=== PATIENT | female | born 1955 | race Caucasian/White ===

== ENCOUNTER → 2018-09-20 | Outpatient (CLI) | payer OTHER ==
[~2018-09-20] MED LIST: CATHETER FLUSH 10 ML SYR IV PRN; HOLD METFORMIN - RECEIVED CONTRAST 20 ML VIAL IV SCH; IOHEXOL 350 MG/ML 100 ML (OMNIPAQUE 350) VIAL IV ONE; NS 100 ML (IVPB) BAG IV ONE
--- NOTE | 2018-09-20 10:56 | Diagnostic Imaging Report ---
PROCEDURE: CT abdomen and pelvis with contrast. TECHNIQUE: Multiple contiguous axial images were obtained through the abdomen and pelvis after administration of intravenous contrast. Auto Exposure Controls were utilized during the CT exam to meet ALARA standards for radiation dose reduction. INDICATION: Lower back pain. No comparison available. FINDINGS: Limited views of lower thorax are unremarkable. Liver is normal. No focal liver lesions are seen. Gallbladder is normal. No biliary ductal dilation. Portal vein is patent. Pancreas, spleen and right adrenal gland are normal. There is an 18 mm indeterminate left adrenal nodule. Kidneys enhance symmetrically. No focal renal lesions are seen. There is a cyst in the upper pole right kidney. No hydronephrosis. Urinary bladder is normal. No pelvic mass seen. There is no bowel obstruction or inflammation. No free fluid or air. No abdominal or pelvic lymphadenopathy. The abdominal aorta is atherosclerotic without aneurysm. There are no suspicious osseous lesions. There is mild anterolisthesis of L4 and L5 related to facet arthropathy. There is a mild L2 compression fracture, age indeterminate. IMPRESSION: 1. No acute abnormality in the abdomen or pelvis. 2. Indeterminate 18 mm left adrenal nodule. In the absence of a history of malignancy, this is almost certainly benign. Consider 12 month followup adrenal protocol CT. 3. Mild anterolisthesis of L4 and L5 related to facet arthropathy. 4. Mild L2 compression fracture, age indeterminate. Dictated by: Dictated on workstation # [id number]
== END ==
LOC: RAD FS 08:50
PROVIDERS: ATTEND Family Medicine
DX: N39.0 Urinary tract infection, site not specified (principal); M43.16 Spondylolisthesis, lumbar region; M84.48XA Pathological fracture, other site, initial encounter for fracture; M12.88 Other specific arthropathies, not elsewhere classified, other specified site
CPT/HCPCS: 74177

== ENCOUNTER → 2018-10-29 | Outpatient (CLI) | payer OTHER ==
--- NOTE | 2018-10-29 16:17 | Diagnostic Imaging Report ---
INDICATION: 63-year-old asymptomatic postmenopausal female. COMPARISON: None available. FINDINGS: AP Spine L1-L4: [BMD (g/cm2): 1.066] [T-Score: -1.1] [Z-Score: -0.5] [BMD Previous: N/A] [BMD % Change: N/A] LT Hip Neck: [BMD (g/cm2): 0.818] [T-Score: -1.6] [Z-Score: -0.7] LT Hip Total: [BMD (g/cm2):0.963] [T-Score:-0.4] [Z-Score: 0.1] [BMD Previous: N/A] [BMD % Change: N/A] RT Hip Neck: [BMD (g/cm2):0.836] [T-Score:1.5] [Z-Score:-0.6] RT Hip Total: [BMD (g/cm2):0.927] [T-score:-0.6] [Z-Score:-0.2] [BMD Previous:N/A] [BMD % Change:N/A] *Indicates significant change from prior examination based on 95% confidence level. World Health Organization criteria for BMD interpretation classify patients as Normal (T-score at or above -1.0), Osteopenic (T-score between -1.0 and -2.5) or Osteoporotic (T-score at or below -2.5). LIMITATIONS AND MODIFICATION: None. IMPRESSION: 1. Osteopenia (Low bone mass). 2. Baseline examination. 3. See below National Osteoporosis Foundation guidelines on when to potentially initiate pharmacologic therapy. Based on the National Osteoporosis Foundation Guidelines, pharmacologic treatment should be initiated in any of the following, unless clinical conditions suggest otherwise: * Any patient with prior fragility fracture of the hip or vertebrae. A spine fracture indicates 5X risk for subsequent spine fracture and 2X risk for subsequent hip fracture. * Osteoporosis (T-score <-2.5). * Postmenopausal women and men age 50 and older with low bone mass/osteopenia (T-score between -1.0 and -2.5) by DXA and 10-year major osteoporotic fracture greater than 20% or a 10-year probability of hip fracture greater than 3%. These fracture risks are supplied above in the FRAX score, if applicable. * Clinician judgement and/or patient preferences may indicate treatment for people with 10-year fracture probabilities above or below these levels. Dictated by: Dictated on workstation # [id number]
== END ==
LOC: RAD 10:47
PROVIDERS: ATTEND Family Medicine
DX: M80.08XA Age-related osteoporosis with current pathological fracture, vertebra(e), initial encounter for fracture (principal); M85.80 Other specified disorders of bone density and structure, unspecified site
CPT/HCPCS: 77080

== ENCOUNTER → 2019-06-25 | Outpatient (CLI) | payer OTHER ==
--- NOTE | 2019-06-25 09:36 | Diagnostic Imaging Report ---
PROCEDURE: MR imaging cervical spine without contrast. TECHNIQUE: Multiplanar, multisequence MR imaging of the cervical spine was performed without contrast. DATE: June 25, 2019. COMPARISON: None. INDICATION: 64-year-old female, neck pain. No known injury. FINDINGS: The alignment of the cervical spine is grossly unremarkable. There is no evidence of a diffuse marrow infiltrating or replacing process. There are Modic endplate degenerative changes most notably adjacent to the C4-C5 and C6-C7 disc spaces. There is moderate to severe disc height loss at C4-C5 and mild disc height loss at C5-C6 and C6-C7. There is mild arthritis at the C1-C2 articulation. There is minimal joint fluid at the C1-C2 articulation. There is no focal concerning bone lesion. The imaged portions of the spinal cord are unremarkable in signal. C2-C3: There is no disc bulge. The uncovertebral and facet joints are unremarkable. There is no foraminal narrowing. There is no spinal canal stenosis. C3-C4: There is no disc bulge. The uncovertebral and facet joints are unremarkable. There is no foraminal narrowing. There is no spinal canal stenosis. C4-C5: There is a posterior disc osteophyte complex. The uncovertebral and facet joints are unremarkable. There is moderate left foraminal narrowing. There is no spinal canal stenosis. C5-C6: There is a posterior disc osteophyte complex. There are mild left uncovertebral degenerative changes. There is moderate to severe left and mild right foraminal narrowing. There is no spinal canal stenosis. C6-C7: There is a small posterior disc osteophyte complex. The uncovertebral and facet joints are unremarkable. There is no high-grade foraminal narrowing. There is very mild spinal canal stenosis. C7-T1: There is no disc bulge. The uncovertebral and facet joints are unremarkable. There is no foraminal narrowing. There is no spinal canal stenosis. IMPRESSION: 1. Disc and uncovertebral degenerative changes of the cervical spine as described level by level above. Findings are most notable at C4-C5, C5-C6, and C6-C7. Dictated by: Dictated on workstation # [id number]
== END ==
LOC: RAD 08:22
PROVIDERS: ATTEND Family Medicine
DX: M47.812 Spondylosis without myelopathy or radiculopathy, cervical region (principal)
CPT/HCPCS: 72141

== ENCOUNTER → 2019-08-26 | Outpatient (CLI) | payer OTHER ==
--- NOTE | 2019-08-26 10:47 | Diagnostic Imaging Report ---
PROCEDURE: MRI left upper extremity without contrast. TECHNIQUE: Multiplanar, multisequence non contrast-enhanced MRI of the left upper extremity was accomplished. INDICATION: Left shoulder pain. COMPARISON: None. FINDINGS: No acute fracture or dislocation is seen in the left shoulder. The alignment appears normal. There are severe degenerative changes in the acromioclavicular joint. No joint effusion is seen. The supraspinatus tendon demonstrates moderate tendinosis. There is a small full-thickness tear measuring 5 mm in width near the myotendinous junction. There is high-grade partial-thickness tearing at the articular surface of the supraspinatus insertion which measures 1.2 cm in width. The infraspinatus tendon demonstrates low-grade partial-thickness tearing at the insertion with medial intrasubstance extension. The teres minor tendon is intact. The subscapularis tendon appears intact. The long head of the biceps tendon is normal in course and signal. The glenoid labrum is suboptimally evaluated without intra-articular contrast; however, there does appear to be tearing of the superior labrum which may be degenerative. No paralabral cyst is seen. The acromion has a curved undersurface without significant hooking. The coracoclavicular and coracoacromial ligaments are intact. No muscular atrophy is seen. The soft tissues about the left shoulder demonstrate no acute abnormality. IMPRESSION: 1. Small full-thickness tear and moderate-sized high-grade partial-thickness tear in the left supraspinatus tendon. No muscular atrophy is seen. 2. Low-grade partial-thickness tearing in the infraspinatus tendon. 3. Severe degenerative changes in the acromioclavicular joint. Dictated by: Dictated on workstation # [id number]
== END ==
LOC: RAD 08:30
PROVIDERS: ATTEND Orthopaedic Surgery Orthopaedic Surgery of the Spine
DX: M75.102 Unspecified rotator cuff tear or rupture of left shoulder, not specified as traumatic (principal); M19.012 Primary osteoarthritis, left shoulder
CPT/HCPCS: 73221

== ENCOUNTER → 2020-09-09 | Outpatient (CLI) | payer SELFPAY ==
--- NOTE | 2020-09-09 12:20 | Diagnostic Imaging Report ---
INDICATION: Chest pain CTA calcium score study performed with noncontrast images of the cardiac silhouette, with calculation of calcium scoring. The visualized portions of the lung mulligan show no focal lesion. There are mild emphysematous changes. The entirety of the lung mulligan are not included on the study. The aorta is not aneurysmal. There are coronary artery calcifications present. There are some calcifications of the aortic valve as well. Calcium score is as follows 79.1 for left main, 151.3 for LAD, 16.6 for circumflex coronary, and 152.5 for right coronary artery. Total score was 399.6. IMPRESSION: Extensive coronary artery calcifications are present, with moderate to severe plaque burden. Dictated by: Dictated on workstation # [id number]
== END ==
LOC: RAD FS 10:02
PROVIDERS: ATTEND Family Medicine
DX: Z13.9 Encounter for screening, unspecified (principal); I25.10 Atherosclerotic heart disease of native coronary artery without angina pectoris; F17.200 Nicotine dependence, unspecified, uncomplicated
CPT/HCPCS: 75571

== ENCOUNTER → 2020-10-01 | Outpatient (CLI) | payer OTHER | LOC: CARD 09:31 | PROVIDERS: ATTEND Internal Medicine Cardiovascular Disease | DX: I51.7 Cardiomegaly (principal); I51.89 Other ill-defined heart diseases; I35.8 Other nonrheumatic aortic valve disorders; I25.84 Coronary atherosclerosis due to calcified coronary lesion ==

== ENCOUNTER → 2020-10-14 | Outpatient (CLI) | payer OTHER ==
[~2020-10-14] MED LIST changes: -HOLD METFORMIN - RECEIVED CONTRAST 20 ML VIAL IV SCH; -IOHEXOL 350 MG/ML 100 ML (OMNIPAQUE 350) VIAL IV ONE; -NS 100 ML (IVPB) BAG IV ONE; +REGADENOSON 0.4 MG/5 ML SYR (LEXISCAN) IV ONE
[2020-10-14 09:15] VITALS: BP 158/72
--- NOTE | 2020-10-14 17:44 | NUCLEAR STRESS TEST ---
REGADENOSON NUCLEAR STRESS Date of procedure: 10/14/2020. Primary care provider: Papito Whitten MD Admitting physician: Livan Yoon Jr., MD. INDICATION: Coronary calcification. BASELINE ELECTROCARDIOGRAM: Sinus rhythm with frequent premature ventricular complexes, borderline right axis deviation, low voltage in the precordial leads, incomplete left bundle branch block, and possible old anteroseptal infarct. STRESS TEST PROCEDURE: The patient was administered 0.4 mg of intravenous Regadenoson. The resting heart rate was 72 bpm and the peak heart rate was 99 bpm. The resting blood pressure was 158/72 mmHg and the minimum blood pressure was 144/90 mmHg. This represents a normal heart rate and a normal blood pressure response to Regadenoson. The test was stopped due to the protocol. There was no chest discomfort during the test. There were frequent premature ventricular complexes during the test. The stress electrocardiogram was indeterminate due to the baseline abnormalities. NUCLEAR PROCEDURE: The patient was administered 10.7 mCi of intravenous technetium 99m Tetrofosmin at rest for the rest images. The patient was subsequently administered 29.4 mCi of intravenous technetium 99m Tetrofosmin at peak stress for the stress images. Following an appropriate wait after each injection, imaging was obtained. The images were subsequently processed and r eformatted in the usual views. Gated imaging was obtained. The image quality was adequate but with some gastrointestinal attenuation artifact. CT attenuation correction was used as a adjunct to standard imaging. Both the corrected and uncorrected images were reviewed for interpretation. NUCLEAR RESULTS: There was a large, severe intensity, fixed basal to apical inferior defect with no evidence of inducible ischemia with a summed stress score of 26 and a summed difference score of 0. There was normal left ventricular chamber size with an end-diastolic volume of 102 mL and an end- systolic volume of 62 mL. There was no evidence of transient ischemic dilatation. The TID ratio was 1.2. There was inferior akinesis with global hypokinesis elsewhere with a calculated ejection fraction of 39%. IMPRESSION: 1. Normal heart rate and blood pressure response to regadenoson with resting hy pertension. 2. There was no chest discomfort during the test. 3. There were isolated premature ventricular complexes at rest and throughout the duration of the test. 4. The stress electrocardiogram was indeterminate due to the baseline abnormalities. 5. There was a large, severe intensity, fixed basal to apical inferior defect with no evidence of inducible ischemia with a summed stress score of 26 and a summed difference score of 0. 6. There was inferior akinesis with global hypokinesis elsewhere with a calculated ejection fraction of 39%. 7. This is an abnormal test representing an overall moderate risk for future ischemic events in light of the size of the inferior defect accompanied by moderate left ventricular systolic dysfunction. On the other hand, there is no evidence of ischemia. Certain portions of this document may have been dictated utilizing voice recognition technology. Inherent to this technology, typographical and grammatical errors may exist. As much as I am diligent to identify and correct these mistakes, some errors may remain in the document. LIVAN YOON JR, MD Oct 14, 2020 17:44
== END ==
LOC: CARD 08:00
PROVIDERS: ATTEND Internal Medicine Cardiovascular Disease
DX: I25.84 Coronary atherosclerosis due to calcified coronary lesion (principal)
CPT/HCPCS: 78452; 93017; A9502

== ENCOUNTER → 2022-02-14 | Outpatient (CLI) | payer OTHER ==
--- NOTE | 2022-02-14 14:56 | Diagnostic Imaging Report ---
PROCEDURE: US carotid duplex, bilateral. TECHNIQUE: Multiple real-time grayscale images were obtained over the carotid arteries in various projections, bilaterally. Additional spectral analysis and color Doppler duplex images were also obtained. INDICATION: Carotid bruit COMPARISON: None available FINDINGS: Right carotid circulation: The right common carotid artery is normal in caliber, and there is no significant stenosis. Peak systolic velocity in the right common carotid artery is 44 cm/sec. There is a moderate to large amount of atherosclerotic plaque causing more than 50% luminal narrowing by wu-scale imaging. The peak systolic velocity in the proximal internal carotid artery is 205 cm/sec. Proximal aspect of the external carotid artery is patent with expected high resistance waveforms, and peak systolic velocity of 65 cm/sec. Left carotid circulation: The left common carotid artery is normal in caliber, with mild to moderate narrowing in its proximal aspect due to atherosclerotic plaquing. Peak systolic velocity in the left common carotid artery is 57 cm/sec. There is a moderate to large amount of atherosclerotic plaque causing more than 50% luminal narrowing by wu-scale imaging. The peak systolic velocity in the proximal internal carotid artery is 331 cm/sec. Proximal aspect of the external carotid artery is patent with expected high resistance waveforms, and peak systolic velocity of 64 cm/sec. Vertebral arteries: Flow in the bilateral vertebral arteries is antegrade. IMPRESSION: 1. Greater than 70% but less than near occlusion of the proximal left ICA due to atherosclerotic plaque. 2. Between 50-69% stenosis of the right ICA due to atherosclerotic plaque. 3. Patent vertebral arteries with antegrade flow. Parameters based on the consensus panel Wu-Scale and Doppler ultrasound criteria published December 2002, Radiology, Volume 229. DOPPLER (peak systolic velocity M/S Right Left CCA .44 .57 ICA Proximal 2.05 3.31 ICA Mid 1.13 1.32 ICA Distal .65 .64 RATIO 4.66 5.80 ECA 1.78 2.25 VERT .70 .86 Dictated by: Dictated on workstation # [id number]
== END ==
LOC: RAD FS 09:12
PROVIDERS: ATTEND Internal Medicine Cardiovascular Disease
DX: I65.23 Occlusion and stenosis of bilateral carotid arteries (principal); I35.0 Nonrheumatic aortic (valve) stenosis; I51.7 Cardiomegaly
CPT/HCPCS: 93880; C8929; 93306

== ENCOUNTER → 2022-02-17 | Outpatient (CLI) | payer OTHER ==
[~2022-02-17] MED LIST changes: +HOLD METFORMIN - RECEIVED CONTRAST 20 ML VIAL IV SCH; +IOHEXOL 350 MG/ML 100 ML (OMNIPAQUE 350) VIAL IV ONE; +NS 100 ML (IVPB) BAG IV ONE; -REGADENOSON 0.4 MG/5 ML SYR (LEXISCAN) IV ONE
[2022-02-17 10:27] LABS: CREATININE SERUM 0.61 MG/DL (0.60-1.30)
--- NOTE | 2022-02-17 12:47 | Diagnostic Imaging Report ---
REASON FOR EXAM: Stenosis of the carotid arteries. Further characterization. TIME OF EXAM: 02/17/2022 11:07 AM COMPARISON: Carotid ultrasound on 02/14/2022. TECHNIQUE: Contrast-enhanced thin section helical images were obtained from the mediastinum to the sella with the bolus of contrast timed for the optimal opacification of the arterial structures of the neck per departmental CTA protocol. Postprocessing and retro-reconstruction with coronal and sagittal reformatted images of the angiographic views of the vessels were obtained and were reviewed. 3D reformatted images were generated on a separate workstation and were reviewed. FINDINGS: The visualized portions of the aortic arch demonstrate no evidence of aneurysm or dissection. There is conventional branching pattern of the great vessels of the aorta. The brachiocephalic artery is normal in course and caliber. The right and left common carotid origins are unremarkable. The origin of the left subclavian artery is patent. The common carotid arteries and internal carotid arteries demonstrate a tortuous course. There is calcified atherosclerotic plaque in the bilateral carotid bulbs and proximal internal carotid arteries. There is approximately 80% stenosis of the proximal left internal carotid artery secondary to atherosclerotic plaque. There is 50-69% stenosis in the proximal right internal carotid artery. Degrees of stenosis are based on NASCET criteria. No evidence of dissection in the carotid systems. The external carotid arteries are patent and unremarkable. The vertebral arteries are codominant. The origin of the right vertebral artery is seen and is unremarkable. The origin of the left vertebral artery is seen and is unremarkable. There is no focal stenosis seen within the neck. There is no dissection. The vertebral arteries are well visualized to up to the level of the basilar artery. The osseous structures of the cervical spine are unremarkable. Included views through the lung apices demonstrate no focal consolidation. IMPRESSION: 1. Approximately 80% stenosis in the proximal left internal carotid artery with 50-69% stenosis in the proximal right internal carotid artery. Findings are secondary to atherosclerotic plaque. 2. No stenosis is seen in the vertebral arteries. Dictated by: Dictated on workstation # [id number]
== END ==
LOC: LAB FS 09:45
PROVIDERS: ATTEND Internal Medicine Cardiovascular Disease
DX: I65.23 Occlusion and stenosis of bilateral carotid arteries (principal)
CPT/HCPCS: 36415; 70498; 82565; 84520; Q9967

== ENCOUNTER 2022-04-06 19:24 | Emergency (ER) | payer OTHER ==
[~2022-04-06] VITALS: Ht 154.9 cm; Wt 92.8 kg
--- NOTE | 2022-04-06 19:30 | ED General ---
General Stated Complaint: POST OP LETHARGY History of Present Illness Date Seen by Provider: Apr 06, 2022 Time Seen by Provider: 19:30 Initial Comments 66-year-old female brought in because family feels like she is a little lethargic. She does not feel lethargic but she states that her family thinks she is. Patient is 5 days postop from a left carotid surgery. Surgery was done in [place]. Patient has a history of COPD and has not used her breathing treatment since she got back. She has been sleeping a lot more and supposed to wear oxygen as needed and at night. She denies any chest pain, fevers chills or other systemic complaints. Allergies and Home Medications Allergies Coded Allergies: codeine (Unverified Adverse Reaction, Unknown, 04/06/22) Patient Home Medication List Home Medication List Reviewed: Yes ALPRAZolam (ALPRAZolam) 0.25 Mg Tablet, 0.25 MG PO BID PRN for ANXIETY, (Reported) Entered as Reported by: KELLY COBIAN on 04/06/222012 Last Action: New Order Albuterol Sulfate (Ventolin Hfa) 90 Mcg Hfa.aer.ad, 1-2 PUFF INH QID PRN for SHORTNESS OF BREATH, (Reported) Entered as Reported by: KELLY COBIAN on 04/06/222012 Last Action: New Order Clopidogrel Bisulfate (Clopidogrel) 75 Mg Tablet, 75 MG PO DAILY, (Reported) Entered as Reported by: KELLY COBIAN on 04/06/222012 Last Action: New Order Diltiazem HCl (Diltiazem 24Hr ER) 240 Mg Cap.er.24h, 240 MG PO DAILY, (Reported) Entered as Reported by: KELLY COBIAN on 04/06/222012 Last Action: New Order Gabapentin (Gabapentin) 800 Mg Tablet, 800 MG PO TID, (Reported) Entered as Reported by: KELLY COBIAN on 04/06/222012 Last Action: New Order Hydrochlorothiazide (Hydrochlorothiazide) 25 Mg Tablet, 25 MG PO DAILY, (Reported) Entered as Reported by: KELLY COBIAN on 04/06/222012 Last Action: New Order Oxycodone HCl/Acetaminophen (Oxycodone-Acetaminophen 5-325) 5 Mg-325 Mg Tablet, 1 TAB PO BID PRN for PAIN-SEVERE (8-10), (Reported) Entered as Reported by: KELLY COBIAN on 04/06/222012 Last Action: New Order Sertraline HCl (Sertraline HCl) 100 Mg Tablet, 150 MG PO DAILY, (Reported) Entered as Reported by: KELLY COBIAN on 04/06/222012 Last Action: New Order Tramadol HCl (Tramadol HCl) 50 Mg Tablet, 50 MG PO Q4H PRN for PAIN BREAKTROUGH, (Reported) Entered as Reported by: KELLY CBOIAN on 04/06/222012 Last Action: New Order Review of Systems Review of Systems Constitutional: see HPI EENTM: see HPI Respiratory: dyspnea on exertion, wheezing Genitourinary: no symptoms reported Musculoskeletal: no symptoms reported Skin: no symptoms reported Psychiatric/Neurological: No Symptoms Reported Hematologic/Lymphatic: No Symptoms Reported Physical Exam Vital Signs Capillary Refill : Height, Weight, BMI Height: '" Weight: lbs. oz. kg; BMI Method: General Appearance: No Apparent Distress, WD/WN Neck: Other (Swelling left-sided neck where carotid surgery was done, normal postop) Respiratory: No No Accessory Muscle Use, No No Respiratory Distress; Decreased Breath Sounds; No Respiratory Distress; Wheezing Cardiovascular: Regular Rate, Rhythm Gastrointestinal: Non Tender, Soft Extremity: Normal Capillary Refill Neurologic/Psychiatric: Alert, Oriented x3, Normal Mood/Affect Progress/Results/Core Measures Suspected Sepsis SIRS Temperature: Pulse: Respiratory Rate: Laboratory Tests 04/06/22 19:43: White Blood Count 11.9H Blood Pressure / Mean: Laboratory Tests 04/06/22 19:43: Creatinine 0.47L, Platelet Count 224, Total Bilirubin 0.4 Results/Orders Lab Results Laboratory Tests Test 04/06/22 19:43 Range/Units White Blood Count 11.9 H 4.3-11.0 10^3/uL Red Blood Count 4.72 3.80-5.11 10^6/uL Hemoglobin 14.9 11.5-16.0 g/dL Hematocrit 45 35-52 % Mean Corpuscular Volume 96 80-99 fL Mean Corpuscular Hemoglobin 32 25-34 pg Mean Corpuscular Hemoglobin Concent 33 32-36 g/dL Red Cell Distribution Width 13.9 10.0-14.5 % Platelet Count 224 130-400 10^3/uL Mean Platelet Volume 9.0 9.0-12.2 fL Immature Granulocyte % (Auto) 0 % Neutrophils (%) (Auto) 76 H 42-75 % Lymphocytes (%) (Auto) 17 12-44 % Monocytes (%) (Auto) 6 0-12 % Eosinophils (%) (Auto) 1 0-10 % Basophils (%) (Auto) 1 0-10 % Neutrophils # (Auto) 9.0 H 1.8-7.8 10^3/uL Lymphocytes # (Auto) 2.0 1.0-4.0 10^3/uL Monocytes # (Auto) 0.7 0.0-1.0 10^3/uL Eosinophils # (Auto) 0.1 0.0-0.3 10^3/uL Basophils # (Auto) 0.1 0.0-0.1 10^3/uL Immature Granulocyte # (Auto) 0.0 0.0-0.1 10^3/uL Urine Color PALE YELLOW Urine Clarity CLEAR Urine pH 6.5 5-9 Urine Specific [place] <=1.005 1.016-1.022 Urine Protein NEGATIVE NEGATIVE Urine Glucose (UA) NEGATIVE NEGATIVE Urine Ketones NEGATIVE NEGATIVE Urine Nitrite NEGATIVE NEGATIVE Urine Bilirubin NEGATIVE NEGATIVE Urine Urobilinogen 0.2 < = 1.0 MG/DL Urine Leukocyte Esterase NEGATIVE NEGATIVE Urine RBC (Auto) NEGATIVE NEGATIVE Urine RBC NONE /HPF Urine WBC RARE /HPF Urine Squamous Epithelial Cells 0-2 /HPF Urine Crystals NONE /LPF Urine Bacteria NEGATIVE /HPF Urine Casts NONE /LPF Urine Mucus NEGATIVE /LPF Urine Culture Indicated NO Sodium Level 137 135-145 MMOL/L Potassium Level 4.9 3.6-5.0 MMOL/L Chloride Level 97 L 98-107 MMOL/L Carbon Dioxide Level 31 21-32 MMOL/L Anion Gap 9 5-14 MMOL/L Blood Urea Nitrogen 10 7-18 MG/DL Creatinine 0.47 L 0.60-1.30 MG/DL Estimat Glomerular Filtration Rate 106 BUN/Creatinine Ratio 21 Glucose Level 114 H 70-105 MG/DL Calcium Level 9.1 8.5-10.1 MG/DL Corrected Calcium 9.3 8.5-10.1 MG/DL Total Bilirubin 0.4 0.1-1.0 MG/DL Aspartate Amino Transf (AST/SGOT) 13 5-34 U/L Alanine Aminotransferase (ALT/SGPT) 12 0-55 U/L Alkaline Phosphatase 79 40-136 U/L Total Protein 6.6 6.4-8.2 GM/DL Albumin 3.8 3.2-4.5 GM/DL My Orders Orders - RODNEY ALVAREZ DO Chest Pa/Lat (2 View) (04/06/22 19:36) Albuterol/Ipra Inhalation Soln (Duoneb I (04/06/22 19:45) Svn Small Volume Nebulizer (04/06/22 19:36) Cbc With Automated Diff (04/06/22 19:37) Comprehensive Metabolic Panel (04/06/22 19:37) Ua Culture If Indicated (04/06/22 19:37) Albuterol/Ipra Inhalation Soln (Duoneb I (04/06/22 20:30) Svn Small Volume Nebulizer (04/06/22 20:23) Medications Given in ED Current Medications Medications Dose Ordered Sig/Jorden Route Start Time Stop Time Status Last Admin Dose Admin Albuterol/ Ipratropium 3 ml ONCE ONCE INH 04/06/22 19:45 04/06/22 19:46 DC 04/06/22 19:40 3 ML Vital Signs/I&O Capillary Refill : Progress Note : Progress Note Patient's diagnostic studies were ordered and reviewed interpreted by me. Patient's radiologic study was initially interpreted by me with final reading by radiologist. Patient has questionable infiltrate versus atelectasis. Because of her COPD and recent surgery I will start her on azithromycin empirically.. Patient clarified throughout her stay that she actually does not been using her breathing treatment because its been broken for a while. That she is post use oxygen all the time but has not been. When patient initially arrived to the emergency room her oxygen was in the 60s to 70s percent. That responded appropriately to oxygen and a breathing treatment. She felt significantly better on 2 L of home oxygen. She was given DuoNeb x2 and had significant improvement in her lung sounds. We did provide her a new nebulizing machine. She reports that she has medications at home. I discussed with her the need to wear oxygen 2 L at all times. Patient was stable and discharged home Diagnostic Imaging Diagonstic Imaging: Xray Plain Films/CT/US/NM/MRI: chest Comments Date of Exam:03/02/23 CHEST PA/LAT (2 VIEW) EXAM: Chest PA and lateral (2 view). INDICATION: Shortness of breath. Lethargy. COMPARISON: None. FINDINGS: Normal heart size and central pulmonary vascularity. Small left pleural effusion and consolidation in the left lung base. No pneumothorax. No acute osseous finding. IMPRESSION: Small left pleural effusion and atelectasis or infiltrate at the left lung base. Reviewed: Reviewed by Me, Reviewed/Discussed Departure Impression Primary Impression: COPD (chronic obstructive pulmonary disease) Qualified Codes: J44.9 - Chronic obstructive pulmonary disease, unspecified Additional Impression: Chronic respiratory failure with hypoxia, on home O2 therapy Disposition: HOME, SELF-CARE Condition: Stable Departure-Patient Inst. Referrals: SELFNOHEMI MD (PCP) Primary Care Physician Patient Instructions: Oxygen Therapy, Adult (DC), Chronic Obstructive Pulmonary Disease (COPD), Including Emphysema Add. Discharge Instructions: Please use your nebulizer as prescribed by your primary care provider. Please wear your oxygen at 2 L or higher as needed to keep your oxygen level at 90 to 92%. Please follow-up with your primary care provider as needed. Scripts Azithromycin (Azithromycin) 250 Mg Tablet 250 MG PO UD, #6 TAB TAKE 2 TABLETS ON DAY ONE THEN TAKE 1 TABLET DAILY FOR FOUR MORE DAYS Prov: RODNEY ALVAREZ DO 04/06/22 RODNEY ALVAREZ DO Apr 06, 2022 19:30
[2022-04-06] MEDS ORDERED: RT-ALBUTEROL/IPRATROPIUM 3 ML (DUONEB) VIAL INH ONE ×2 (19:45→20:30)
[2022-04-06 19:50] LABS: BASOPHILS % (AUTO) 1 % (0-10); EOSINOPHILS % (AUTO) 1 % (0-10); HEMATOCRIT 45 % (35-52); HEMOGLOBIN 14.9 g/dL (11.5-16.0); LYMPHOCYTES % (AUTO) 17 % (12-44); MEAN CORPUSCULAR HEMOGLOBIN 32 pg (25-34); MEAN CORPUSCULAR HGB CONC 33 g/dL (32-36); MEAN CORPUSCULAR VOLUME 96 fL (80-99); MONOCYTES % (AUTO) 6 % (0-12); NEUTROPHILS % (AUTO) 76 % (42-75); PLATELET COUNT 224 10^3/uL (130-400); WHITE BLOOD COUNT 11.9 10^3/uL (4.3-11.0)
[2022-04-06 19:51] LABS: BASOPHILS # (AUTO) 0.1 10^3/uL (0.0-0.1); EOSINOPHILS # (AUTO) 0.1 10^3/uL (0.0-0.3); MONOCYTES # (AUTO) 0.7 10^3/uL (0.0-1.0)
[2022-04-06 19:52] LABS: BILIRUBIN,URINE NEGATIVE (NEGATIVE); CLARITY,URINE CLEAR; GLUCOSE, URINE (UA) NEGATIVE (NEGATIVE); KETONES,URINE NEGATIVE (NEGATIVE); LEUKOCYTE ESTERASE ,URINE NEGATIVE (NEGATIVE); NITRITE,URINE NEGATIVE (NEGATIVE); PH,URINE 6.5 (5-9); PROTEIN,URINE NEGATIVE (NEGATIVE)
[2022-04-06 20:00] LABS: BACTERIA,URINE NEGATIVE /HPF; COLOR,URINE PALE YELLOW; SQUAMOUS EPITHELIAL CELL,UR 0-2 /HPF; WBC,URINE RARE /HPF
[2022-04-06 20:13] LABS: CREATININE SERUM 0.47 MG/DL (0.60-1.30); POTASSIUM 4.9 MMOL/L (3.6-5.0)
[2022-04-06] MEDS ORDERED: TRAM50TA3 PO (20:13)
[2022-04-06] MEDS ORDERED: SERT-414 PO (20:13)
[2022-04-06] MEDS ORDERED: CLOP75TA28 PO (20:13)
[2022-04-06] MEDS ORDERED: GABA800T10 PO (20:13)
[2022-04-06] MEDS ORDERED: ALPR0.254 PO (20:13)
[2022-04-06] MEDS ORDERED: ALBU18HF2 INH (20:13)
[2022-04-06] MEDS ORDERED: HYDR25TA4 PO (20:13)
[2022-04-06] MEDS ORDERED: OXYC1TAB11 PO (20:13)
[2022-04-06] MEDS ORDERED: DILT240C91 PO (20:13)
[2022-04-06 20:14] LABS: ALBUMIN 3.8 GM/DL (3.2-4.5); BILIRUBIN,TOTAL 0.4 MG/DL (0.1-1.0); CALCIUM 9.1 MG/DL (8.5-10.1); TOTAL PROTEIN 6.6 GM/DL (6.4-8.2)
--- NOTE | 2022-04-06 20:23 | Diagnostic Imaging Report ---
EXAM: Chest PA and lateral (2 view). INDICATION: Shortness of breath. Lethargy. COMPARISON: None. FINDINGS: Normal heart size and central pulmonary vascularity. Small left pleural effusion and consolidation in the left lung base. No pneumothorax. No acute osseous finding. IMPRESSION: Small left pleural effusion and atelectasis or infiltrate at the left lung base. Dictated by: Dictated on workstation # [id number]
[2022-04-06] MEDS ORDERED: AZIT250T12 PO (20:28)
[2022-04-06 20:56] VITALS: BP 128/72
== END 2022-04-06 20:56 | disposition home or self-care (01) ==
LOC: EDUNIT# 19:24 → ER FS 19:25
DX: J44.9 Chronic obstructive pulmonary disease, unspecified (principal); J96.11 Chronic respiratory failure with hypoxia; Z99.81 Dependence on supplemental oxygen
CPT/HCPCS: 36415; 71046; 80053; 81000; 85025; 94640

== ENCOUNTER → 2022-04-12 | Outpatient (CLI) | payer OTHER ==
[~2022-04-12] MED LIST changes: +ALBU18HF2 INH; +ALPR0.254 PO; +AZIT250T12 PO; +CLOP75TA28 PO; +DILT240C91 PO; +GABA800T10 PO; +HYDR25TA4 PO; +OXYC1TAB11 PO; +SERT-414 PO; +TRAM50TA3 PO
--- NOTE | 2022-04-12 15:58 | Diagnostic Imaging Report ---
INDICATION: COPD. TECHNIQUE: Multiple contiguous axial images were obtained through the chest after administration of intravenous contrast. Auto Exposure Controls were utilized during the CT exam to meet ALARA standards for radiation dose reduction. COMPARISON: There is no previous chest CT for comparison. FINDINGS: There are some mildly prominent nodes in the precarinal region with the largest measured about 1.7 x 1.2 cm. There is no enlarged hilar node or axillary node. There is no pleural or pericardial fluid. There are atherosclerotic changes of the aorta and coronary arteries, without evidence of aneurysm. There is no pleural or pericardial fluid. Visualized portions of the upper abdomen demonstrate a left adrenal nodule measuring about 1.8 cm in greatest diameter. There is a small indeterminate lesion off the apex of the right kidney measuring about 1.3 cm. Lung parenchymal windows demonstrate mild emphysematous changes in the apices. There is some linear scarring in the lingula and along the major fissure on the left side. There is a groundglass opacity in the left lower lobe measuring 2.6 cm. This could represent inflammatory change or low-grade neoplasm. Recommend, per Fleischner criteria, follow up CT in 3-6 months. IMPRESSION: 1. Mild emphysematous changes. Groundglass opacity in the left upper lobe is present which may represent inflammatory change or low-grade neoplasm. 2. Per Fleischner criteria, recommend follow-up in 3-6 months. There is some scarring and/or atelectasis along the lingula. There are some mildly prominent nodes in the mediastinum which can be reevaluated at follow-up. Dictated by: Dictated on workstation # [id number]
== END ==
LOC: LAB FS 11:17
PROVIDERS: ATTEND Family Medicine
DX: J98.4 Other disorders of lung (principal); J98.59 Other diseases of mediastinum, not elsewhere classified; J44.9 Chronic obstructive pulmonary disease, unspecified; I10 Essential (primary) hypertension
CPT/HCPCS: 71260